=== PATIENT | female | born 1950 | race Caucasian/White ===

== ENCOUNTER 2017-12-22 16:51 | Emergency (ER) | payer OTHER, BC ==
[~2017-12-22] VITALS: Ht 152.4 cm; Wt 59.1 kg
[~2017-12-22 16:51] MED LIST: FLUOXETINE HCL10 MG PO; SERTRALINE HCL50 MG PO; Toprol XL PO; Xarelto PO; ZOCOR20 MG PO
[2017-12-22 18:02] LABS: HEMOGLOBIN 14.1 G/DL (11.9-15.5); MCH 33.8 PG (29.0-34.0); MCHC 36.2 G/DL (30.0-36.0); MCV 93.5 FL (83-99); PLATELET COUNT 221 K/uL (156-360); RBC DIS.WIDTH-CV 13.3 % (11.8-14.6); RBC DIS.WIDTH-SD 45.4 % (39-53); RED BLOOD COUNT 4.17 M/uL (3.80-5.20); WHITE BLOOD COUNT 14.9 K/uL (4.1-10.2)
[2017-12-22 18:10] LABS: APPEARANCE SL.HAZY ((CLEAR)); BILIRUBIN NEGATIVE; BLOOD SMALL; COLOR YELLOW ((YELLOW)); GLUCOSE (STRIP) NEGATIVE; KETONES NEGATIVE; LEUKOCYTES NEGATIVE; NITRITE NEGATIVE; PROTEIN (STRIP) NEGATIVE; SPECIFIC GRAVITY 1.018 (1.000-1.030); UROBILINOGEN 0.2 MG/DL (0.2-1.0)
[2017-12-22 18:11] LABS: CHLORIDE 98 mEq/L (99-109); POTASSIUM 3.6 mEq/L (3.7-5.4); SODIUM 136 mEq/L (136-147)
[2017-12-22 18:13] LABS: GLUCOSE 109 mg/dL (70-99)
[2017-12-22 18:17] LABS: CREATININE 0.8 mg/dL (0.6-1.3); GFR ESTIMATE (CALCULATED) > 59 mL/min/
[2017-12-22 18:18] LABS: UREA NITROGEN (BUN) 20 mg/dL (9-23)
[2017-12-22 18:26] LABS: BACTERIA 3+ /HPF; EPITHELIAL CELLS 2+ /HPF; HYALINE CASTS 20-30 /LPF; MUCUS TRACE /LPF; RED BLOOD CELLS 0-5 /HPF (0-5); WHITE BLOOD CELLS 0-5 /HPF (0-5)
[2017-12-22] MEDS ORDERED: EPIPEN ADU0.3 MG/0.3 IM (20:12)
[2017-12-22] MEDS ORDERED: ZYRTEC10 M3 PO (20:12)
[2017-12-22] MEDS ORDERED: PEPCID20 MG PO (20:12)
[2017-12-22 20:27] VITALS: BP 131/60
== END 2017-12-22 20:28 | disposition home or self-care (01) ==
LOC: EME 16:51
PROVIDERS: Nurse Practitioner Family
DX: T78.40XA Allergy, unspecified, initial encounter (principal); L50.9 Urticaria, unspecified; F41.9 Anxiety disorder, unspecified; F17.200 Nicotine dependence, unspecified, uncomplicated; Z85.820 Personal history of malignant melanoma of skin; Z86.718 Personal history of other venous thrombosis and embolism; Z88.5 Allergy status to narcotic agent
CPT/HCPCS: 80048; 81003; 85027; 99281; 99285; J1200; J2930

== ENCOUNTER 2017-12-24 11:51 | Emergency (ER) | payer OTHER, BC ==
[~2017-12-24] VITALS: Ht 162.6 cm; Wt 61.1 kg
[~2017-12-24 11:51] MED LIST changes: +EPIPEN ADU0.3 MG/0.3 IM; +PEPCID20 MG PO; +ZYRTEC10 M3 PO
[2017-12-24] MEDS ORDERED: PREDNISONE50 MG PO (15:15)
[2017-12-24] MEDS ORDERED: ATIVAN0.5 MG PO (17:27)
[2017-12-24 17:39] VITALS: BP 112/64
== END 2017-12-24 17:48 | disposition home or self-care (01) ==
LOC: EME 11:51
DX: T78.40XA Allergy, unspecified, initial encounter (principal); L50.0 Allergic urticaria; F41.9 Anxiety disorder, unspecified; Z85.820 Personal history of malignant melanoma of skin; F17.200 Nicotine dependence, unspecified, uncomplicated; Z88.5 Allergy status to narcotic agent
CPT/HCPCS: 99281; 99285; J1200; J2060; J2930; S0028